=== PATIENT | male | born 1995 | race Caucasian/White ===

== ENCOUNTER 2019-01-08 18:17 | Emergency (ER) | payer BC, OTHER ==
[~2019-01-08] VITALS: Ht 175.3 cm; Wt 102.1 kg
--- OUTSIDE RECORDS SUMMARY | 2019-01-08 18:23 | XMS REPORT ---
Author Author RUBY VEGA Organization [facility] Address [address] [place] [address] Care Team Providers Care Care Associate Name Role Phone RUBY VEGA Unavailable PROBLEMS Unknown Problems ALLERGIES No Known Allergies ENCOUNTERS Encounter Location Date Diagnosis [facility] [address] [place] [address] Oct, Nasopharyngitis J00 and Morbid obesity E66.01 [facility] [address] [place] [address] Oct, Right acute otitis media H66.91 and Morbid obesity E66.01 [facility] [address] [place] [address] 15 Sep, 2018 Pre-employment health screening examination Z02.1 IMMUNIZATIONS No Known Immunizations SOCIAL HISTORY Never Assessed REASON FOR VISIT Right Ear pain x 4 days --christine/tata PLAN OF CARE Activity Details Follow Up if not improving with PCP or reg follow up Reason: VITAL SIGNS Height 5' 8" in 2018-10-13 Weight 276 lbs 2018-10-13 Temperature 97.9 degrees Fahrenheit 2018-10-13 Heart Rate 84 bpm 2018-10-13 Respiratory Rate 18 2018-10-13 Oximetry 99 % 2018-10-13 BMI 41.96 kg/m2 2018-10-13 Blood pressure systolic 120 mmHg 2018-10-13 Blood pressure diastolic 74 mmHg 2018-10-13 MEDICATIONS Medication Instructions Dosage Frequency Start Date End Date Duration Status Amoxicillin 500 MG Orally every 12 hrs 2 tablets 12h Oct, 10 day(s) Active RESULTS No Results PROCEDURES No Known procedures INSTRUCTIONS MEDICATIONS ADMINISTERED No Known Medications
[2019-01-08] MEDS ORDERED: RT-ALBUTEROL/IPRATROPIUM 3 ML (DUONEB) VIAL ONE (18:29)
--- NOTE | 2019-01-08 18:42 | ED Cough/URI ---
General Chief Complaint: Cough/Cold/Flu Symptoms Stated Complaint: CHEST PAIN,FEVER,DRAINAGE,NAUSEA,HEADACHE, HIGH BP Source: patient, family (grandmother who he cohabitates with) Exam Limitations: no limitations History of Present Illness Date Seen by Provider: January 08, 2019 Time Seen by Provider: 18:27 Initial Comments Patient presents to ER by private conveyance with his grandma and chief complaint that for the past 2 days she's been having upper respiratory symptoms of runny nose watery eyes cough that is been productive and today started having some chest pain doubling him over in the center of his kitchen. He said the past chest pain is intermittent, achy in sensation. It is a little worse with coughing but not worse with deep inspiration movement or direct palpation. He has no personal history of heart disease, lung disease although he does smoke less than a pack per week. Denies recreational drug use or recent alcohol use. He said he went to urgent care yesterday and they did a strep test which was negative and a fingerstick and told him that it was likely viral and she go home get some rest. He's been using Tylenol and ibuprofen once today and it did help some after he took it this morning at about 10:00. He denies any drug allergies or significant medical history other than seasonal allergies for which he occasionally takes an antihistamine. He has a familial history of diabetes and cancer on his dad's side. No familial history of early-onset coronary disease. No sudden cardiac . He's had a fever for the past 3 days with MAXIMUM TEMPERATURE 102.5. Allergies and Home Medications Allergies Coded Allergies: No Known Drug Allergies (Unverified , 01/08/19) Patient Home Medication List Home Medication List Reviewed: Yes Review of Systems Review of Systems Constitutional: chills, diaphoresis, fever, malaise EENTM: No ear discharge, No hearing loss, No ear pain Respiratory: cough; No orthopnea; phlegm; No short of breath, No stridor, No wheezing Cardiovascular: see HPI, chest pain; No edema Gastrointestinal: No abdominal pain, No constipation, No diarrhea; nausea, vomiting Genitourinary: No discharge, No dysuria Musculoskeletal: No back pain, No joint pain, No joint swelling Skin: No pruritus, No rash Psychiatric/Neurological: Denies Headache, Denies Numbness, Denies Paresthesia Past Jkxhmub-Fwtege-Ckzfdq Hx Patient Social History Alcohol Use: Occasionally Uses Recreational Drug Use: No Smoking Status: Current Someday Smoker Type Used: Cigars, Cigarettes Recent Foreign Travel: No Contact w/Someone Who Travel: No Physical Exam Vital Signs - First Documented Capillary Refill : Height: '" Weight: lbs. oz. kg; BMI Method: General Appearance: WD/WN, mild distress Eyes: Bilateral Eye Normal Inspection, Bilateral Eye PERRL, Bilateral Eye EOMI HEENT: PERRL/EOMI, normal ENT inspection, TMs normal, pharynx normal Neck: full range of motion, normal inspection Respiratory: lungs clear, normal breath sounds, no respiratory distress, no accessory muscle use Cardiovascular: normal peripheral pulses, regular rate, rhythm, no edema Gastrointestinal: normal bowel sounds, non tender, soft Extremities: non-tender, normal inspection, no pedal edema, no calf tenderness, normal capillary refill Neurologic/Psychiatric: alert, normal mood/affect, oriented x 3 Skin: normal color, warm/dry Progress/Results/Core Measures Suspected Sepsis SIRS Temperature: Pulse: Respiratory Rate: Laboratory Tests 01/08/19 18:35: White Blood Count 14.5H Blood Pressure / Mean: Laboratory Tests 01/08/19 18:35: Creatinine 0.89, Platelet Count 220, Total Bilirubin 0.4 Results/Orders Lab Results Laboratory Tests Test 01/08/19 18:35 Range/Units White Blood Count 14.5 H 4.3-11.0 10^3/uL Red Blood Count 5.34 4.35-5.85 10^6/uL Hemoglobin 14.5 13.3-17.7 G/DL Hematocrit 44 40-54 % Mean Corpuscular Volume 82 80-99 FL Mean Corpuscular Hemoglobin 27 25-34 PG Mean Corpuscular Hemoglobin Concent 33 32-36 G/DL Red Cell Distribution Width 14.9 H 10.0-14.5 % Platelet Count 220 130-400 10^3/uL Mean Platelet Volume 11.2 H 7.4-10.4 FL Neutrophils (%) (Auto) 80 H 42-75 % Lymphocytes (%) (Auto) 8 L 12-44 % Monocytes (%) (Auto) 12 0-12 % Eosinophils (%) (Auto) 0 0-10 % Basophils (%) (Auto) 0 0-10 % Neutrophils # (Auto) 11.6 H 1.8-7.8 X 10^3 Lymphocytes # (Auto) 1.1 1.0-4.0 X 10^3 Monocytes # (Auto) 1.8 H 0.0-1.0 X 10^3 Eosinophils # (Auto) 0.0 0.0-0.3 10^3/uL Basophils # (Auto) 0.0 0.0-0.1 10^3/uL Neutrophils % (Manual) 75 % Lymphocytes % (Manual) 10 % Monocytes % (Manual) 11 % Eosinophils % (Manual) 0 % Basophils % (Manual) 0 % Band Neutrophils 4 % Sodium Level 141 135-145 MMOL/L Potassium Level 3.8 3.6-5.0 MMOL/L Chloride Level 103 98-107 MMOL/L Carbon Dioxide Level 32 21-32 MMOL/L Anion Gap 6 5-14 MMOL/L Blood Urea Nitrogen 7 7-18 MG/DL Creatinine 0.89 0.60-1.30 MG/DL Estimat Glomerular Filtration Rate > 60 BUN/Creatinine Ratio 8 Glucose Level 140 H 70-105 MG/DL Calcium Level 9.1 8.5-10.1 MG/DL Corrected Calcium 9.1 8.5-10.1 MG/DL Magnesium Level 1.9 1.8-2.4 MG/DL Total Bilirubin 0.4 0.1-1.0 MG/DL Aspartate Amino Transf (AST/SGOT) 18 5-34 U/L Alanine Aminotransferase (ALT/SGPT) 9 0-55 U/L Alkaline Phosphatase 69 40-136 U/L Troponin T 218 *H <=15 NG/L Total Protein 6.9 6.4-8.2 GM/DL Albumin 4.0 3.2-4.5 GM/DL My Orders Orders - LOUISA TERAN Ibuprofen Tablet (Motrin Tablet) (01/08/19 18:45) Cbc With Automated Diff (01/08/19 18:32) Comprehensive Metabolic Panel (01/08/19 18:32) Magnesium (01/08/19 18:32) Chest Pa/Lat (2 View) (01/08/19 18:32) Albuterol/Ipra Inhalation Soln (Duoneb I (01/08/19 18:45) Svn Small Volume Nebulizer (01/08/19 18:32) Ekg Tracing (01/08/19 18:32) Albuterol/Ipra Inhalation Soln (Duoneb I (01/08/19 18:29) Troponin T (01/08/19 18:35) Manual Differential (01/08/19 18:35) Medications Given in ED Current Medications Medications Dose Ordered Sig/Lucy Route Start Time Stop Time Status Last Admin Dose Admin Albuterol/ Ipratropium 3 ml ONCE ONCE INH 01/08/19 18:45 01/08/19 18:46 DC 01/08/19 18:37 3 ML Ibuprofen 800 mg ONCE ONCE PO 01/08/19 18:45 01/08/19 18:46 DC 01/08/19 18:39 800 MG Vital Signs/I&O 01/08/19 01/08/19 18:22 18:22 Temp 102.8 Pulse 102 Resp 18 B/P (MAP) 111/63 (79) Pulse Ox 100 O2 Delivery Room Air Room Air Capillary Refill : Progress Note : Time: 18:40 Progress Note Differential includes bronchitis, gastritis, GERD, gastroenteritis viral, pneumonia, myocarditis or pericarditis, bronchospasm. He's not having any abdominal distress and has a nontender abdomen at this time so we'll hold off doing any GI interventions. He has an occasional dry cough always hears pretty give him a breathing treatment and see if his mildly diminished lung sounds or symptoms improve. We'll capture an EKG and troponin looking for evidence of myocarditis. 800 mg ibuprofen. He has Zofran at home for nausea but is not having any nausea right now. Chest x-ray two-view. He is mildly anxious when he first got here and his heart rate was right around 100 with a fever which would meet Sirs criteria but as he sat down and rested his heart rate was in the mid to upper 80s which does not meet SIRS criteria. 1845: Patient notes maybe a marginal improvement in his breathing and chest pain after the DuoNeb. On auscultation we can hear perhaps a little better air move ment but there was never wheezing to begin with. ECG Initial ECG Impression Date: January 08, 2019 Initial ECG Impression Time: 18:39 Initial ECG Rate: 89 Initial ECG Rhythm: Normal Sinus Initial ECG Intervals: Normal Initial ECG Impression: Normal, Nonspecific Changes Initial ECG Comparisson: No Previous ECG Available Diagnostic Imaging Diagonstic Imaging: Xray Plain Films/CT/US/NM/MRI: chest (2v) Comments NAME: YENNI PABON [facility] REC#: [id number] PT STATUS: REG ER : 1995 PHYSICIAN: LOUISA TERAN MD ADMIT DATE: 01/08/19/ER FS Draft Date of Exam:01/08/19 CHEST PA/LAT (2 VIEW) INDICATION: Febrile. Cough and chest pain. FINDINGS: PA and lateral chest. The lungs are well-aerated and clear. Heart not enlarged. No pulmonary edema or hilar adenopathy. No pneumothorax or pleural effusions. No bony abnormalities. IMPRESSION: Normal PA and lateral chest. Dictated on workstation # [id number] Dict: 01/08/19 1855 Trans: 01/08/19 190 [facility] [id number] Interpreted by: LILIANE MUHAMMAD MD Electronically signed by: Reviewed: Reviewed by Me Consults Consults : Consulting Physician: WILFREDO DELGADO MD Consults Notes Discussed the case presentation and labs with Dr. Delgado, cardiology and he says that he is not trust the troponin T and how effective it is in this situation. Even if it was a viral myocarditis we should just warn the patient about symptoms of CHF for if he goes on for more than 2 weeks then he should follow-up with primary care for reevaluation. Otherwise he recommends just symptomatic management and outpatient follow-up. Treat the bronchitis. Departure Impression Primary Impression: Acute viral bronchitis Additional Impression: Myocarditis Qualified Codes: I40.0 - Infective myocarditis Disposition: 01 HOME, SELF-CARE Condition: Stable Departure-Patient Inst. Decision time for Depature: 19:51 Referrals: STEPHANIE LENZ MD (PCP) Primary Care Physician Patient Instructions: Acute Bronchitis, Adult (DC), Myocarditis Add. Discharge Instructions: Drink lots of fluids. Gatorade or Powerade is recommended. Get some rest and did not participate in any strenuous sports like activity for the next 3 months. It's okay to go to work. Use Tylenol 1000 mg every 8 hours or 650 mg every 6 hours as needed for symptoms. Heating pads, vapor rubs, chicken noodle soup etc. Avoid NSAIDs such as ibuprofen, Aleve, Naprosyn, Advil etc. Anywhere but severe cases these can be associated with longer progression of myocarditis. Expect improvement by 10-14 days. If you're not seeing significant improvement and should follow up with your primary care doctor for reevaluation. If you begin to have symptoms of inability to breathe while lying flat, swelling in your feet, more than a 10 pound weight gain unexpectedly over a week or overall worsening symptoms then you should return to your nearest ER for further evaluation. All discharge instructions reviewed with patient and/or family. Voiced understanding. Work/School Note: Work Release Form Date Seen in the Emergency Department: January 08, 2019 Return to Work: Jan 13, 2019 Restrictions: Return-No Fever (24hrs) Copy Copies To 1: SELF,LOUISA KEMP MD January 08, 2019 18:42
[2019-01-08] MEDS ORDERED: IBUPROFEN 800 MG (MOTRIN) TAB PO ONE (18:45)
[2019-01-08] MEDS ORDERED: RT-ALBUTEROL/IPRATROPIUM 3 ML (DUONEB) VIAL INH ONE (18:45)
[2019-01-08 18:47] LABS: HEMATOCRIT 44 % (40-54); HEMOGLOBIN 14.5 G/DL (13.3-17.7); MEAN CORPUSCULAR HEMOGLOBIN 27 PG (25-34); MEAN CORPUSCULAR HGB CONC 33 G/DL (32-36); MEAN CORPUSCULAR VOLUME 82 FL (80-99); MEAN PLATELET VOLUME 11.2 FL (7.4-10.4); NEUTROPHILS % (AUTO) 80 % (42-75); PLATELET COUNT 220 10^3/uL (130-400); RED CELL DISTRIBUTION WIDTH 14.9 % (10.0-14.5); WHITE BLOOD COUNT 14.5 10^3/uL (4.3-11.0)
[2019-01-08 18:48] LABS: BASOPHILS % (AUTO) 0 % (0-10); EOSINOPHILS % (AUTO) 0 % (0-10); LYMPHOCYTES # (AUTO) 1.1 X 10^3 (1.0-4.0); LYMPHOCYTES % (AUTO) 8 % (12-44); MONOCYTES # (AUTO) 1.8 X 10^3 (0.0-1.0); MONOCYTES % (AUTO) 12 % (0-12); NEUTROPHILS # (AUTO) 11.6 X 10^3 (1.8-7.8)
[2019-01-08 19:03] LABS: BAND NEUTROPHILS 4 %; BASOPHILS % (MANUAL) 0 %; EOSINOPHILS % (MANUAL) 0 %; LYMPHOCYTES % (MANUAL) 10 %; MONOCYTES % (MANUAL) 11 %; NEUTROPHILS % (MANUAL) 75 %
--- NOTE | 2019-01-08 19:05 | Diagnostic Imaging Report ---
INDICATION: Febrile. Cough and chest pain. FINDINGS: PA and lateral chest. The lungs are well-aerated and clear. Heart not enlarged. No pulmonary edema or hilar adenopathy. No pneumothorax or pleural effusions. No bony abnormalities. IMPRESSION: Normal PA and lateral chest. Dictated by: Dictated on workstation # [id number]
[2019-01-08 19:29] LABS: POTASSIUM 3.8 MMOL/L (3.6-5.0); SODIUM 141 MMOL/L (135-145)
[2019-01-08 19:30] LABS: ALANINE AMINOTRANSFERASE 9 U/L (0-55); ALKALINE PHOSPHATASE 69 U/L (40-136); BILIRUBIN,TOTAL 0.4 MG/DL (0.1-1.0); BUN/CREATININE RATIO 8; CALCIUM 9.1 MG/DL (8.5-10.1); CARBON DIOXIDE 32 MMOL/L (21-32); CHLORIDE 103 MMOL/L (98-107); CREATININE SERUM 0.89 MG/DL (0.60-1.30); GFR ESTIMATED > 60; GLUCOSE 140 MG/DL (70-105); MAGNESIUM 1.9 MG/DL (1.8-2.4)
[2019-01-08 19:31] LABS: TOTAL PROTEIN 6.9 GM/DL (6.4-8.2)
--- NOTE | 2019-01-08 19:56 | NUR ---
DOCTOR JEFFRY IN TO SEE THE PATIENT.
[2019-01-08 20:16] VITALS: BP 115/55
[2019-01-09] MEDS ORDERED: ACHD5005 PO (03:58)
== END 2019-01-08 20:23 | disposition home or self-care (01) ==
LOC: ER FS 18:19
DX: J20.9 Acute bronchitis, unspecified (principal); I51.4 Myocarditis, unspecified; F17.290 Nicotine dependence, other tobacco product, uncomplicated; F17.210 Nicotine dependence, cigarettes, uncomplicated
CPT/HCPCS: 36415; 71046; 80053; 83735; 84484; 85007; 85027; 93005; 94640

== ENCOUNTER 2021-12-11 09:44 | Outpatient (CLI) | payer BC ==
[~2021-12-11] VITALS: Ht 175.3 cm; Wt 99.5 kg
[~2021-12-11 09:44] MED LIST: ACHD5005 PO
== END 2021-12-11 12:15 | disposition home or self-care (01) ==
LOC: PREOP 09:44
PROVIDERS: ATTEND Surgery
DX: Z01.818 Encounter for other preprocedural examination (principal)

== ENCOUNTER 2021-12-14 07:55 | Day surgery (SDC) | payer BC ==
[2021-12-14] VITALS (11 sets, daily range): BP systolic 114–142; BP diastolic 61–78
[~2021-12-14] VITALS: Ht 175 cm; Wt 99.5 kg
[2021-12-14] MEDS ORDERED: ceFAZolin 2 GM IV Premixed 50 ML IV ONE (08:15)
[2021-12-14] MEDS ORDERED: LIDOCAINE/EPI 2% 1:100,00 (XYLOCAINE) 20 ML VIAL ONE (08:18)
[2021-12-14] MEDS: LACTATED RINGERS 1,000 ML IV PRN ×2 (08:19→10:45)
[2021-12-14] MEDS ORDERED: MIDAZOLAM 2 MG/2 ML (VERSED) VIAL IV ONE (08:30)
--- NOTE | 2021-12-14 09:48 | Progress Note-Pre Operative ---
Pre-Operative Progress Note H&P Reviewed The H&P was reviewed, patient examined and no changes noted. Time Seen by Provider: 09:46 Date H&P Reviewed: December 14, 2021 Time H&P Reviewed: 09:46 Pre-Operative Diagnosis: Right inguinal hernia, site marked LILIANE RANDLE DO December 14, 2021 09:48
[2021-12-14] MEDS ORDERED: proPOfol 200 MG/20 ML (DIPRIVAN) VIAL IV ONE (10:07)
[2021-12-14] MEDS ORDERED: NEOSTIGMINE 3 MG/3 ML VIAL ONE (10:07)
[2021-12-14] MEDS ORDERED: LIDOCAINE PF 2% 5 ML (XYLOCAINE) VIAL ONE (10:07)
[2021-12-14] MEDS ORDERED: ONDANSETRON 4 MG/2 ML (SDV) Z0FRAN ONE (10:07)
[2021-12-14] MEDS ORDERED: GLYCOPYRROLATE 0.2 MG/ML (ROBINUL) 2 ML VIAL ONE (10:07)
[2021-12-14] MEDS ORDERED: fentaNYL INJ 100 MCG/2 ML AMP ONE (10:08)
[2021-12-14] MEDS ORDERED: MIDAZOLAM 2 MG/2 ML (VERSED) VIAL ONE (10:08)
[2021-12-14] MEDS ORDERED: ROCURONIUM 50 MG/5 ML (ZEMURON) VIAL IV ONE (11:24)
[2021-12-14] MEDS ORDERED: HYDROmorphone 2 MG/ML VIAL (DILAUDID) ONE (11:28)
[2021-12-14] MEDS ORDERED: SEVOFLURANE (ULTANE) 15 ML INHAL SOLN ONE (11:33)
--- NOTE | 2021-12-14 11:33 | Progress Note-Post Operative ---
Post-Operative Progess Note Surgeon (s)/Automation Technician (s) Surgeon LILIANE RANDLE DO Automation Technician: Irene Pre-Operative Diagnosis Right inguinal hernia, site marked Post-Operative Diagnosis Same plus cord lipoma Procedure & Operative Findings Date of Procedure 12/14/21 Procedure Performed/Findings 1) Right Inguinal herniarraphy with mesh placement 2) Excision of cord lipoma After informed consent was obtained, the patient was brought to the operating room and placed on the operating table in a supine position. He was sterilely prepped and draped in a normal fashion. Local lidocaine was used to infiltrate the skin above the umbilicus. I made an incision with #11 blade, carried down to the skin into subcutaneous tissue and then deepened down the subcutaneous tissue with Bovie electrocautery down to the fascia. Fascia was incised with Bovie electrocautery and bluntly entered the abdomen, swept a finger around, placed 0 Vicryl [id number] suture and placed limited trocar port under direct visualization. Created pneumoperitoneum, able to visualize the hernia and took a picture of this and then placed two 8 mm ports about 10 cm on either side of the midline port using a local lidocaine, 11 blade for stab incision and then advanced the robotic port under direct visualization. Once this was in, I then placed the patient in Trendelenburg and then placed the working instruments, the fenestrated bipolar and the scissors. Looked on the left side and saw early signs of a direct inguinal hernia. I could see a the beginnings of a direct hernia defect on the right side. Next, I came across the peritoneum approximately 8 cm away from the hernia defect, going across laterally starting lateral about 17cm and cutting toward the median umbilical ligament. I then carefully dissected the visceral peritoneum away and down and then in the midline, went through the parietal side and dissected down to the pubic tubercle, dissecting this down carefully pushing the peritoneum away, I was able to then visualize the pubic tubercle and Jaspal's ligament. I went 2 cm posterior and at this point, we then had a critical view of the dissection, able to dissect 2 cm across the midline to the right side, 2 cm posterior to the Jaspal's ligament, able to then parietalize the vas deferens and spermatic vessels right at the groove between Jaspal's and iliac vein and able to dissect, make sure there was no peritoneum between those two, able to see the indirect hernia space, took a picture of this, looked at the femoral space (no hernia seen). Then I carefully teased out the hernia sac and could visualize the indirect hernia space. Next I looked on the cord and cord structures. There was a large cord lipoma that I was able to reduce and cut off. This was then removed through the port to get it out of the peritoneal space. I could clearly see the inguinal canal and the indirect space. Next I carried the posterior lateral dissection all the way out and then placed a 12 x 17 Midwieght Bard 3DMax mesh. It laid in nicely, covered the hernia defect and the rest of the area. It was above the peritoneum, sutured it at the pubic tubercle with a 3-0 Vicryl suture and tied this off. I then sutured out laterally to hold it in place. This appeared to lay in very nicely. I then brought down the pneumoperitoneum to about 8 mmHg and then started closing the peritoneum. Started laterally and used a 2-0 V-lock barbed suture to start a running stitch to close the peritoneum. This was closed nicely, took a picture of the closure at this point, then removed both needles had switched to a suture bull driver from the scissors. The patient was then placed back supine, removed all ports under direct visualization, allowed pneumoperitoneum to escape and then closed the supraumbilical incision, closing the fascia with 0 Vicryl suture previously placed. Copiously irrigated all incisions and then closed the two small 8 mm incisions with two interrupted 4-0 undyed Monocryl subcuticular stitches and closed the supraumbilical incision with three interrupted undyed Monocryl subcuticular stitch. Area was cleaned and dried. Dermabond was placed. The patient tolerated the procedure. The sponge, instrument and needle counts were correct at the end of the case. Dr. Bonilla assisted during this surgery by making incisions, closing incisions, helping to identify anatomy and passing/retrieving suture and needles. Anesthesia Type GET Estimated Blood Loss Estimated blood loss (mL): scant Specimens/Packing Specimens Removed cord lipoma LILIANE RANDLE DO December 14, 2021 11:33
[2021-12-14] MEDS ORDERED: ACHD5005 PO (11:34)
--- NOTE | 2021-12-14 11:36 | Discharge Inst-Surgical ---
Discharge Inst-Surgical Depart Medication/Instructions New, Converted or Re-Newed RX: Transmitted to Pharmacy Patient Instructions Follow up Appt: Make appointment for 1 week. [phone] Instructions: No lifting greater than 20 pounds. No strenuous activity. May shower in 24 hours, no tub bath or soaking. Use incentive spirometer at home as directed. No Smoking Skin/Wound Care: May remove bandages in am. You need to leave the Dermabond on incision it will fall off on it's own. Symptoms to Report: Appetite Changes, Extremity Discoloration, Numbness/Tingling, Swelling Increased, Bleeding Excessive, Eyesight Changes, Pain Increased, Urine Color Change, Constipation(Persistent), Fever over 101 degree F, Pain/Pressure in chest, Urinating Difficulty, Cough Up/Vomit Blood, Heart Beat Irreg/Pounding, Pain/Pressure in jaw, Cramps in feet or legs, Lightheadedness, Pain/Pressure in shoulder, Diarrhea(Persistent), Memory Changes Suddenly, Questions/Concerns, Weight gain consecutive days, Dizziness/Fainting, Nausea/Vomiting, Shortness of Breath, Weight gain over 2 pounds If questions or concerns contact your physician Or seek help at emergency department. Activity Activity as Tolerated: Yes Activity Instructions: Avoid Stress to Incision Driving Instructions: No Driving/Refer to Dr. Acosta Discharge Diet: No Restrictions Diet After 24 Hours: Clear Liquid if Nauseous If Any Problems/Questions/Issu: Contact Your Physician, Go to Emergency Room Skin/Wound Care Infection Signs and Symptoms: Increased Redness, Foul Odor of Wound, Increased Drainage, Skin Itchy or Has a Rash, Increased Swelling, Temperature Above 101 F Wound Care Comment: heating pad to shoulder or neck tonight for pain Bathing Instructions: Shower Stitches/[place]/Dermabond Dis: Dermabond Ice Pack: Ice On and Off Site LILIANE RANDLE DO December 14, 2021 11:36
[2021-12-14] MEDS ORDERED: HYDROmorphone 2 MG/ML VIAL (DILAUDID) IV ONE (12:00)
[2021-12-14] MEDS ORDERED: ONDANSETRON 4 MG/2 ML (SDV) Z0FRAN IVP PRN (12:00)
[2021-12-14] MEDS ORDERED: HYDROcodone/APAP 5 MG/325 MG (LORTAB) TAB ONE (12:50)
[2021-12-14] MEDS ORDERED: HYDROcodone/APAP 5 MG/325 MG (LORTAB) TAB PO ONE (13:00)
--- NOTE | 2021-12-14 14:55 | Anesthesia-General Post-Op ---
General Patient Condition Mental Status/LOC: Same as Preop Cardiovascular: Satisfactory Nausea/Vomiting: Absent Respiratory: Satisfactory Pain: Controlled Complications: Absent Post Op Complications Complications None Follow Up Care/Instructions Patient Instructions None needed. Anesthesia/Patient Condition Patient Condition Patient was doing well after the procedure with no complaints, stable vital signs, no apparent adverse anesthesia problems. MIGUEL DAWKINS DO December 14, 2021 14:55
== END 2021-12-14 15:09 | disposition home or self-care (01) ==
LOC: SDC 07:55
PROVIDERS: ATTEND Surgery
DX: K40.90 Unilateral inguinal hernia, without obstruction or gangrene, not specified as recurrent (principal); D17.6 Benign lipomatous neoplasm of spermatic cord; F17.200 Nicotine dependence, unspecified, uncomplicated
CPT/HCPCS: 49505; 55520; 87081; 88302; 94664; C1781

== ENCOUNTER 2022-12-28 17:41 | Emergency (ER) | payer OTHER, BC ==
--- NOTE | 2022-12-28 17:50 | ED Upper Extremity ---
General Chief Complaint: Upper Extremity Stated Complaint: RT HAND INJ History of Present Illness Date Seen by Provider: December 28, 2022 Time Seen by Provider: 17:49 Initial Comments 27-year-old male presents with right hand injury. He reports that he punched a plastic fan. He has abrasion and swelling over the third knuckle of the right hand. He has painful range of motion. He reports no other injury. He is unsure when his last tetanus was Allergies and Home Medications Allergies Coded Allergies: No Known Drug Allergies (Unverified , 12/11/21) Patient Home Medication List Home Medication List Reviewed: Yes Hydrocodone Bit/Acetaminophen (HYDROcodone/APAP 5 MG/325 MG TAB) 1 Tab Tab, 1 TAB PO Q8H PRN for PAIN-MODERATE (5-7) Prescribed by: LILIANE RANDLE on 12/14/21 5525 Review of Systems Constitutional: no symptoms reported EENTM: no symptoms reported Respiratory: no symptoms reported Cardiovascular: no symptoms reported Gastrointestinal: no symptoms reported Genitourinary: no symptoms reported Musculoskeletal: see HPI Skin: see HPI Past Suxwjmi-Aulzxu-Cwbgmz Hx Immunizations Up To Date First/Initial COVID19 Vaccinat: NO Seasonal Allergies Seasonal Allergies: Yes Past Medical History Surgeries: No Respiratory: Yes (BRONCHITIS YOU HAD INHALER, ASTHMA CHILD NO HALER PRESENTLY) Asthma Currently Using CPAP: No Currently Using BIPAP: No Cardiac: Yes (ENLARGED HEART FOUND OUT WHEN HAD BRONCHITIS DIDNT GET CHECK OUT PER ER VIS) Neurological: No Genitourinary: No Gastrointestinal: No Musculoskeletal: No Endocrine: No HEENT: No Cancer: No Psychosocial: No Integumentary: No Blood Disorders: No Physical Exam Vital Signs Vital Signs - First Documented 12/28/22 17:58 Temp 36.6 Pulse 71 Resp 16 B/P (MAP) 138/66 (90) Pulse Ox 100 O2 Delivery Room Air Capillary Refill : Height, Weight, BMI Height: 5'9.00" Weight: 225lbs. oz. [id number]; 32.48 BMI Method:Stated General Appearance: WD/WN, no apparent distress Neck: full range of motion, supple Cardiovascular: normal peripheral pulses, regular rate, rhythm Respiratory: lungs clear, normal breath sounds Shoulder: normal inspection, no evidence of injury Elbow/Forearm: normal inspection, non-tender, no evidence of injury Wrist: Yes normal inspection, Yes non-tender, Yes no evidence of injury Hand: Right, limited ROM, soft tissue tenderness, swelling (3rd nuckle ) Skin: other (small abrasions dorsal right hand) Progress/Results/Core Measures Results/Orders My Orders Orders - MARYAM GUERRERO L DO Dipht,Pertuss(Acell),Tet Adult (Boostrix (12/28/22 18:00) Hand 3 View Right (12/28/22 18:27) Medications Given in ED Current Medications Medications Dose Ordered Sig/Lucy Route Start Time Stop Time Status Last Admin Dose Admin Diphtheria/ Tetanus/Acell Pertussis 0.5 ml ONCE ONCE IM 12/28/22 18:00 12/28/22 18:01 DC 12/28/22 18:13 0.5 ML Vital Signs/I&O 12/28/22 12/28/22 17:58 18:38 Temp 36.6 36.6 Pulse 71 71 Resp 16 16 B/P (MAP) 138/66 (90) 138/66 Pulse Ox 100 100 O2 Delivery Room Air Room Air Progress Progress Note : Progress Note Patient's x-ray was ordered reviewed with the initial interpretation of no acute fracture or dislocation noted by me. Final interpretation per radiology report. Discussed with patient supportive care including ice, Tylenol ibuprofen may try wrist splint to see if it helps with pain. Patient can resume activity as tolerated. He is stable and discharged Diagnostic Imaging Diagonstic Imaging: Xray Plain Films/CT/US/NM/MRI: hand Comments Date of Exam:12/28/22 HAND 3 VIEW RIGHT INDICATION: Trauma, pain. COMPARISON: None available. TECHNIQUE: Three radiographs of the right hand dated December 28, 2022. FINDINGS: No acute fracture or dislocation. No destructive osseous process. Soft tissue swelling is noted involving the dorsum of the hand, particularly overlying the distal metacarpals. No suspicious radiopaque foreign body. Carpal alignment is well-maintained. IMPRESSION: No acute osseous abnormality with soft tissue swelling noted involving the dorsum of the hand. Reviewed: Reviewed by Me, Reviewed/Discussed Departure Impression Primary Impression: Traumatic hematoma of right hand Qualified Codes: S60.221A - Contusion of right hand, initial encounter Additional Impression: Abrasion of right hand, initial encounter Disposition: HOME, SELF-CARE Condition: Stable Departure-Patient Inst. Referrals: NO,LOCAL PHYSICIAN (PCP/Family) Primary Care Physician Patient Instructions: Skin Abrasions, Contusion (DC) Add. Discharge Instructions: Ice for 10 to 15 minutes at a time 3-4 times daily for the next 24 to 36 hours. You can resume activity as tolerated. Tylenol ibuprofen as needed for pain. You may try a wrist splint to see if it helps with pain. Follow-up with your provider in 7 to 10 days if symptoms or not improving or continue to worsen for repeat x-ray. All discharge instructions reviewed with patient and/or family. Voiced understanding. Work/School Note: Work Release Form Date Seen in the Emergency Department: December 28, 2022 Return to Work: January 01, 2023 Other Restrictions Listed Below: May resume activity as tolerated MARYAM GUERRERO DO December 28, 2022 17:49
[2022-12-28] MEDS ORDERED: TETANUS,DIPTH,PERTUSS P/F (BOOSTRIX) 0.5 ML VIAL IM ONE (18:00)
[2022-12-28 18:38] VITALS: BP 138/66
--- NOTE | 2022-12-28 18:41 | Diagnostic Imaging Report ---
INDICATION: Trauma, pain. COMPARISON: None available. TECHNIQUE: Three radiographs of the right hand dated December 28, 2022. FINDINGS: No acute fracture or dislocation. No destructive osseous process. Soft tissue swelling is noted involving the dorsum of the hand, particularly overlying the distal metacarpals. No suspicious radiopaque foreign body. Carpal alignment is well-maintained. IMPRESSION: No acute osseous abnormality with soft tissue swelling noted involving the dorsum of the hand. Dictated by: Dictated on workstation # [id number]
== END 2022-12-28 18:46 | disposition home or self-care (01) ==
LOC: EDUNIT# 17:41 → ER FS 17:42
DX: S60.221A Contusion of right hand, initial encounter (principal); Z23 Encounter for immunization; Z28.310 Unvaccinated for COVID-19; W22.8XXA Striking against or struck by other objects, initial encounter
CPT/HCPCS: 73130; 90715